=== PATIENT | male | born 1990 | race Two or more races ===

== ENCOUNTER 2018-07-15 14:27 | Emergency (ER) | payer MEDICAID, OTHER ==
[~2018-07-15] VITALS: Ht 175.3 cm; Wt 74.8 kg
[2018-07-15 14:57] VITALS: BP 126/65
[2018-07-15] MEDS ORDERED: TETANUS-DIPTH-ACEL PERTUSSIS 0.5ML SYRG IM ONE (15:15)
[2018-07-15] MEDS ORDERED: HYDROcodone-ACET 10/325MG TAB PO ONE (16:45)
== END 2018-07-15 17:21 | disposition home or self-care (01) ==
LOC: ER 14:34
DX: S61.431A Puncture wound without foreign body of right hand, initial encounter (principal); F17.210 Nicotine dependence, cigarettes, uncomplicated; W22.8XXA Striking against or struck by other objects, initial encounter; Y93.89 Activity, other specified; Y99.8 Other external cause status; Y92.59 Other trade areas as the place of occurrence of the external cause
CPT/HCPCS: 73130; 90471; 90715

== ENCOUNTER 2018-10-24 14:41 | Emergency (ER) | payer MEDICAID, OTHER ==
[~2018-10-24] VITALS: Ht 175.3 cm; Wt 74.8 kg
[2018-10-24 15:29] LABS: Anion Gap 5 (5-15); Blood Urea Nitrogen 9 mg/dL (7-18); Carbon Dioxide 27 mmol/L (21-32); Chloride 106 mmol/L (98-107); Glucose 104 mg/dL (74-106); Potassium 3.3 mmol/L (3.5-5.1); Sodium 138 mmol/L (136-145)
[2018-10-24 15:30] LABS: Alanine Aminotransferase 19 U/L (16-61); Albumin 4.1 g/dL (3.4-5.0); Aspartate Aminotransferase 14 U/L (15-37); GFR African American 102 mL/min; GFR Non-African American 84 mL/min
[2018-10-24 15:35] LABS: Alkaline Phosphatase 101 U/L (45-117); Bilirubin, Total 0.4 mg/dL (0.2-1.0); Total Protein 7.9 g/dL (6.4-8.2)
[2018-10-24 15:46] LABS: Basophils # (auto) 0 uL; Basophils % (auto) 0.2 % (0.0-2.0); Eosinophils # (auto) 0 uL; Eosinophils % (auto) 0.2 % (0.0-7.0); Hematocrit 46.5 % (41.0-53.0); Lymphocytes # (auto) 1.3 uL; Lymphocytes % (auto) 11.7 % (10.0-50.0); Mean Corpuscular Hgb Conc. 34.5 g/dL (32.0-36.0); Mean Corpuscular Volume 89.8 fL (80.0-100.0); Monocytes # (auto) 0.6 uL; Monocytes % (auto) 4.8 % (0.0-12.0); Neutrophils # (auto) 9.5 uL; Neutrophils % (auto) 83.1 % (37.0-80.0); Platelet Count (auto) 215 10^3/uL (140-450); Red Blood Cells 5.18 10^6/uL (4.5-5.90); Red Cell Distribution Width 12.7 % (11.8-14.3); White Blood Cell 11.4 10^3/uL (4.4-10.8)
[2018-10-24] MEDS ORDERED: POTASSIUM CHL 20 Meq TABLET PO ONE (17:15)
[2018-10-24] MEDS ORDERED: SODIUM CHLORIDE 0.9% 1,000 ML IV ONE (18:00)
[2018-10-24 18:30] VITALS: BP 130/77
== END 2018-10-24 19:09 | disposition home or self-care (01) ==
LOC: ER 14:41
DX: T67.5XXA Heat exhaustion, unspecified, initial encounter (principal); R55 Syncope and collapse; E87.6 Hypokalemia; F17.210 Nicotine dependence, cigarettes, uncomplicated; X58.XXXA Exposure to other specified factors, initial encounter; Y93.89 Activity, other specified; Y92.89 Other specified places as the place of occurrence of the external cause; Y99.8 Other external cause status
CPT/HCPCS: 36415; 80053; 82962; 84484; 85025; 93005; 96360; 99284; J7030